=== PATIENT | female | born 1995 | race Caucasian/White ===

== ENCOUNTER 2021-06-15 20:01 | Emergency (ER) | payer OTHER ==
[~2021-06-15] VITALS: Ht 154.9 cm; Wt 50.5 kg
[2021-06-15 20:23] VITALS: BP 119/74
== END 2021-06-15 22:26 | disposition home or self-care (01) ==
LOC: ER 20:04
DX: S93.402A Sprain of unspecified ligament of left ankle, initial encounter (principal); M25.572 Pain in left ankle and joints of left foot; Z88.0 Allergy status to penicillin; Z88.1 Allergy status to other antibiotic agents; X58.XXXA Exposure to other specified factors, initial encounter; Y93.89 Activity, other specified; Y92.89 Other specified places as the place of occurrence of the external cause; Y99.8 Other external cause status
CPT/HCPCS: 29515; 73610; 99283